=== PATIENT | male | born 1990 | race Caucasian/White ===

== ENCOUNTER 2018-06-25 12:42 | Emergency (ER) | payer SELFPAY ==
[~2018-06-25] VITALS: Ht 177.8 cm; Wt 110.0 kg
[2018-06-25 13:00] VITALS: BP 119/78
[2018-06-25] MEDS ORDERED: ZOFRAN ODT4 MG PO (14:56)
== END 2018-06-25 15:15 | disposition home or self-care (01) ==
LOC: ED 12:42
DX: J11.1 Influenza due to unidentified influenza virus with other respiratory manifestations (principal); Z90.49 Acquired absence of other specified parts of digestive tract